=== PATIENT | male | born 1970 | race American Indian/Alaskan Native ===

== ENCOUNTER 2018-09-04 19:43 | Emergency (ER) | payer SELFPAY ==
[2018-09-04 19:59] VITALS: BP 106/60
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
[2018-09-04] MEDS ORDERED: FLEXERIL PO ONE (22:20)
[2018-09-04] MEDS ORDERED: TORADOL IM ONE (22:20)
== END 2018-09-04 22:53 | disposition home or self-care (01) ==
LOC: ED 19:43
DX: M54.5 Low back pain (principal); F12.10 Cannabis abuse, uncomplicated; V49.49XA Driver injured in collision with other motor vehicles in traffic accident, initial encounter; Y93.89 Activity, other specified; Y92.410 Unspecified street and highway as the place of occurrence of the external cause; Y99.8 Other external cause status
CPT/HCPCS: 72100; 96372; 99283; J1885